=== PATIENT | male | born 1980 | race Caucasian/White ===

== ENCOUNTER → 2021-07-04 11:02 | Outpatient (BNVA) | payer OTHER, SELFPAY | PROVIDERS: Visit Provider Nurse Practitioner Psychiatric/Mental Health | DX: F11.99 Opioid use, unspecified with unspecified opioid-induced disorder (principal); F10.20 Alcohol dependence, uncomplicated; F14.10 Cocaine abuse, uncomplicated; F41.8 Other specified anxiety disorders; G47.9 Sleep disorder, unspecified; R25.2 Cramp and spasm; R45.84 Anhedonia; Z81.1 Family history of alcohol abuse and dependence; Z81.8 Family history of other mental and behavioral disorders; Z63.0 Problems in relationship with spouse or partner | CPT/HCPCS: 80305 ==

== ENCOUNTER → 2021-07-11 16:52 | Outpatient (BNVA) | payer OTHER, SELFPAY | PROVIDERS: Visit Provider Nurse Practitioner Psychiatric/Mental Health | DX: F11.90 Opioid use, unspecified, uncomplicated (principal); F10.20 Alcohol dependence, uncomplicated; F14.10 Cocaine abuse, uncomplicated | CPT/HCPCS: 80305 ==

== ENCOUNTER → 2021-07-25 13:24 | Outpatient (BNVA) | payer OTHER, SELFPAY | PROVIDERS: Visit Provider Nurse Practitioner Psychiatric/Mental Health | DX: Z51.81 Encounter for therapeutic drug level monitoring (principal); F10.20 Alcohol dependence, uncomplicated; F11.90 Opioid use, unspecified, uncomplicated; F14.10 Cocaine abuse, uncomplicated | CPT/HCPCS: 80305 ==

== ENCOUNTER → 2021-08-01 15:55 | Outpatient (BNVA) | payer OTHER, SELFPAY | PROVIDERS: Visit Provider Nurse Practitioner Psychiatric/Mental Health | DX: F11.99 Opioid use, unspecified with unspecified opioid-induced disorder (principal); F10.20 Alcohol dependence, uncomplicated; F14.10 Cocaine abuse, uncomplicated | CPT/HCPCS: 80305 ==

== ENCOUNTER → 2021-08-08 16:25 | Outpatient (BNVA) | payer OTHER, SELFPAY | PROVIDERS: Visit Provider Nurse Practitioner Psychiatric/Mental Health | DX: F11.20 Opioid dependence, uncomplicated (principal); F10.20 Alcohol dependence, uncomplicated; F14.10 Cocaine abuse, uncomplicated; Z51.81 Encounter for therapeutic drug level monitoring; Z79.899 Other long term (current) drug therapy | CPT/HCPCS: 80305 ==

== ENCOUNTER → 2021-08-15 16:14 | Outpatient (BNVA) | payer OTHER, SELFPAY | PROVIDERS: Visit Provider Nurse Practitioner Psychiatric/Mental Health ==

== ENCOUNTER → 2021-08-22 16:13 | Outpatient (BNVA) | payer OTHER, SELFPAY | PROVIDERS: Visit Provider Nurse Practitioner Psychiatric/Mental Health ==

== ENCOUNTER → 2021-08-29 16:19 | Outpatient (BNVA) | payer OTHER, SELFPAY | PROVIDERS: Visit Provider Nurse Practitioner Psychiatric/Mental Health | DX: F11.20 Opioid dependence, uncomplicated (principal); F14.10 Cocaine abuse, uncomplicated; F10.20 Alcohol dependence, uncomplicated; Z51.81 Encounter for therapeutic drug level monitoring; Z79.899 Other long term (current) drug therapy | CPT/HCPCS: 80305 ==

== ENCOUNTER → 2021-09-19 16:23 | Outpatient (BNVA) | payer OTHER, SELFPAY | PROVIDERS: Visit Provider Nurse Practitioner Psychiatric/Mental Health | DX: Z51.81 Encounter for therapeutic drug level monitoring (principal); F14.10 Cocaine abuse, uncomplicated; F11.20 Opioid dependence, uncomplicated | CPT/HCPCS: 80305 ==

== ENCOUNTER → 2021-10-03 16:20 | Outpatient (BNVA) | payer OTHER, SELFPAY | PROVIDERS: Visit Provider Nurse Practitioner Psychiatric/Mental Health | DX: Z51.81 Encounter for therapeutic drug level monitoring (principal); F11.20 Opioid dependence, uncomplicated; F14.10 Cocaine abuse, uncomplicated; F10.20 Alcohol dependence, uncomplicated | CPT/HCPCS: 80305 ==

== ENCOUNTER → 2021-10-24 16:12 | Outpatient (BNVA) | payer OTHER, SELFPAY | PROVIDERS: Visit Provider Nurse Practitioner Psychiatric/Mental Health ==

== ENCOUNTER → 2021-12-05 15:56 | Outpatient (BNVA) | payer OTHER, SELFPAY | PROVIDERS: Visit Provider Nurse Practitioner Psychiatric/Mental Health ==

== ENCOUNTER → 2022-01-02 14:53 | Outpatient (BNVA) | payer OTHER, SELFPAY | PROVIDERS: Visit Provider Nurse Practitioner Psychiatric/Mental Health | DX: F11.20 Opioid dependence, uncomplicated (principal); F10.20 Alcohol dependence, uncomplicated; F14.10 Cocaine abuse, uncomplicated; Z51.81 Encounter for therapeutic drug level monitoring; Z79.899 Other long term (current) drug therapy | CPT/HCPCS: 80305 ==

== ENCOUNTER → 2022-01-30 15:39 | Outpatient (BNVA) | payer OTHER, SELFPAY | PROVIDERS: Visit Provider Nurse Practitioner Psychiatric/Mental Health | DX: Z51.81 Encounter for therapeutic drug level monitoring (principal) ==

== ENCOUNTER → 2022-05-08 16:39 | Outpatient (BNVA) | payer OTHER, SELFPAY | PROVIDERS: Visit Provider Nurse Practitioner Psychiatric/Mental Health | DX: F11.20 Opioid dependence, uncomplicated (principal); F10.20 Alcohol dependence, uncomplicated; F14.10 Cocaine abuse, uncomplicated; Z51.81 Encounter for therapeutic drug level monitoring; Z79.899 Other long term (current) drug therapy | CPT/HCPCS: 80305 ==

== ENCOUNTER → 2022-05-30 15:08 | Outpatient (BNVA) | payer OTHER, SELFPAY | PROVIDERS: Visit Provider Nurse Practitioner Psychiatric/Mental Health | DX: F11.20 Opioid dependence, uncomplicated (principal); F10.20 Alcohol dependence, uncomplicated; F14.10 Cocaine abuse, uncomplicated; Z51.81 Encounter for therapeutic drug level monitoring; Z79.899 Other long term (current) drug therapy | CPT/HCPCS: 80305 ==

== ENCOUNTER → 2022-06-13 10:10 | Outpatient (BNVA) | payer OTHER, SELFPAY | PROVIDERS: Visit Provider Nurse Practitioner Psychiatric/Mental Health | DX: F11.20 Opioid dependence, uncomplicated (principal); F10.20 Alcohol dependence, uncomplicated; F14.10 Cocaine abuse, uncomplicated; Z51.81 Encounter for therapeutic drug level monitoring; Z79.899 Other long term (current) drug therapy | CPT/HCPCS: 80305 ==

== ENCOUNTER → 2022-11-14 16:14 | Outpatient (BNVA) | payer OTHER, SELFPAY | PROVIDERS: Visit Provider Nurse Practitioner Psychiatric/Mental Health | DX: F11.20 Opioid dependence, uncomplicated (principal); F14.20 Cocaine dependence, uncomplicated | CPT/HCPCS: 80305 ==

== ENCOUNTER → 2022-12-05 16:13 | Outpatient (BNVA) | payer OTHER, SELFPAY | PROVIDERS: Visit Provider Nurse Practitioner Psychiatric/Mental Health | DX: Z13.89 Encounter for screening for other disorder (principal) ==

== ENCOUNTER → 2022-12-19 14:59 | Outpatient (BNVA) | payer OTHER, SELFPAY | PROVIDERS: Visit Provider Nurse Practitioner Psychiatric/Mental Health | DX: Z13.89 Encounter for screening for other disorder (principal) ==

== ENCOUNTER → 2023-01-02 13:10 | Outpatient (BNVA) | payer OTHER, SELFPAY | PROVIDERS: Visit Provider Nurse Practitioner Psychiatric/Mental Health | DX: Z13.89 Encounter for screening for other disorder (principal) ==

== ENCOUNTER → 2023-01-30 16:16 | Outpatient (BNVA) | payer OTHER, SELFPAY | PROVIDERS: Visit Provider Nurse Practitioner Psychiatric/Mental Health | DX: Z13.89 Encounter for screening for other disorder (principal) ==

== ENCOUNTER → 2023-03-13 09:45 | Outpatient (BNVA) | payer OTHER, SELFPAY | PROVIDERS: PCP Internal Medicine; Visit Provider Nurse Practitioner Psychiatric/Mental Health | DX: F10.20 Alcohol dependence, uncomplicated (principal); F11.20 Opioid dependence, uncomplicated; F14.10 Cocaine abuse, uncomplicated | CPT/HCPCS: 80305 ==

== ENCOUNTER → 2023-03-30 14:43 | Outpatient (BNVA) | payer OTHER, SELFPAY | PROVIDERS: PCP Internal Medicine; Visit Provider Nurse Practitioner Psychiatric/Mental Health | DX: F11.20 Opioid dependence, uncomplicated (principal); F10.20 Alcohol dependence, uncomplicated; F14.10 Cocaine abuse, uncomplicated; Z51.81 Encounter for therapeutic drug level monitoring | CPT/HCPCS: 80305 ==

== ENCOUNTER 2023-04-28 15:33 | Outpatient (AMB) | payer OTHER, SELFPAY ==
--- NOTE | 2023-04-28 15:34 | A.OFFVIS_ITS ---
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 Reports that he continues to take between 4-8 mg daily, usually taking 8 mg daily. He states he has stopped taking all medications that were ordered, but will resume taking sertraline. He states he has been spending more time at home. Has cut down his cocaine use. Review of Systems Const Reports as per HPI and Reports no additional complaints Physical Exam Vital Signs: Last Vital Signs Pulse 87 04/28/23 15:42 BP 140/92 H 04/28/23 15:42 Pulse Ox 96 04/28/23 15:42 Oxygen Delivery Method Room Air 04/28/23 15:42 Const General: cooperative, no acute distress, alert and anxious Nutritional Appearance: overweight Orientation/consciousness: patient oriented x3 Limitations: no limitations Neuro General: patient oriented x3 Psych Appearance: grossly normal Mental Status: mental status grossly normal Speech and movement: Normal speech and movement present Affect: Anxious affect present Attitude: cooperative Thought process: Normal thought process present Thought content: Depressive thoughts present Insight: Good insight present (Psych) Judgement: Good judgement present (Psych) Results AMB 14 Panel Urine Drug Screen Urine Marijuana (THC) Negative Last Edit by Clemencia Hagen CMA on 04/28/23 15:44 Urine Cocaine Positive Last Edit by Clemencia Hagen CMA on 04/28/23 15:44 Urine Morphine Negative Last Edit by Clemencia Hagen CMA on 04/28/23 15:44 Urine Methamphetamine Negative Last Edit by Clemencia Hagen CMA on 04/28/23 15:44 Urine Amphetamine Negative Last Edit by Clemencia Hagen CMA on 04/28/23 15:4 4 Urine Benzodiazepine Negative Last Edit by Clemencia Hagen CMA on 04/28/23 15:44 Urine Barbiturates Negative Last Edit by Clemencia Hagen CMA on 04/28/23 15: 44 Urine Methadone Negative Last Edit by Clemencia Hagen CMA on 04/28/23 15:44 Urine Buprenorphine Positive Last Edit by Clemencia Hagen CMA on 04/28/23 15 :44 Urine Tricyclic Antidepressant Negative Last Edit by Clemencia Hagen CMA on 04/28/23 15:44 Urine MDMA Negative Last Edit by Clemencia Hagen CMA on 04/28/23 15:44 Urine Oxycodone Negative Last Edit by Clemencia Hagen CMA on 04/28/23 15:44 Urine Phencyclidine Negative Last Edit by Clemencia Hagen CMA on 04/28/23 15 :44 Urine Propoxyphene Negative Last Edit by Clemencia Hagen CMA on 04/28/23 15: 44 Results Reviewed Results Reviewed: Laboratory Last Values POC Urine Buprenorphine Positive 04/28/23 15:35 POC Urine Morphine Negative 04/28/23 15:35 POC Urine Oxycodone Negative 04/28/23 15:35 POC Urine Methadone Negative 04/28/23 15:35 POC Urine Propoxyphene Negative 04/28/23 15:35 POC Urine Barbiturates Negative 04/28/23 15:35 POC U Tricyclic Antidpr Negative 04/28/23 15:35 POC Urine PCP Negative 04/28/23 15:35 POC Ur Amphetamines Negative 04/28/23 15:35 POC Ur Methamphetamine Negative 04/28/23 15:35 POC Urine MDMA Negative 04/28/23 15:35 POC Ur Benzodiazepine Negative 04/28/23 15:35 POC Urine Cocaine Positive 04/28/23 15:35 POC Ur Marijuana (THC) Negative 04/28/23 15:35 Assessment & Plan Assessment & Plan (1) Opioid use disorder: Code(s): F11.99 - Opioid use, unspecified with unspecified opioid-induced disorder Plan: * Continue Suboxone at current dose * Follow-up 4 weeks * Risk reduction discussion Orders: Orders AMB 14 Panel Urine Drug Screen 04/28/23 Z51.81 - Encounter for therapeutic drug level monitoring Medications: Refilled buprenorphine-naloxone 4-1 mg (Suboxone) 1 film sublingual BID 60 ea 0RF Discontinued topiramate Discontinued Reason: Patient no longer taking 25 mg PO DAILY 90 tabs 0RF oxcarbazepine Discontinued Reason: Patient no longer taking 300 mg PO .daily 90 tabs 0RF Coding Level of Care Code Est Pt Level 4 (24932) Diagnoses Opioid use disorder F11.99
[2023-04-28 15:42] VITALS: BP 140/92; PULSE 87; O2SAT 96
== END 2023-04-28 16:04 | disposition home or self-care (01) ==
LOC: HO.HCC 15:33
PROVIDERS: PCP Internal Medicine; Visit Provider Nurse Practitioner Psychiatric/Mental Health
DX: F11.99 Opioid use, unspecified with unspecified opioid-induced disorder (principal)
CPT/HCPCS: 99214

== ENCOUNTER → 2023-04-28 15:33 | Outpatient (BNVA) | payer OTHER, SELFPAY | PROVIDERS: PCP Internal Medicine; Visit Provider Nurse Practitioner Psychiatric/Mental Health | DX: F11.20 Opioid dependence, uncomplicated (principal) | CPT/HCPCS: 80305 ==

== ENCOUNTER 2023-12-04 14:05 | Outpatient (AMB) | payer OTHER, SELFPAY ==
--- NOTE | 2023-12-04 14:08 | MHC.AM.SUB ---
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: No Allergies No Known Allergies Allergy (Verified 12/04/23 14:19) Do you need a note to return to daycare/school/sports/work: No HPI MAT Restart HPI Details Patients presents to re-establish care, last seen April 2023 Reports he has been drinking daily --vodka and mixed drinks 10 drinks per day Starts drinking shortly after waking Would like to taper off of alcohol Does not wish to go inpatient high deductible for ATS admission (5K) Has been buying suboxone taking 4mg daily Discussed tapering alcohol and risks with either reducing too quickly or abruptly stopping Patient verbalized understanding. Patient somewhat guarded. Verbalizing negative impacts of his continued alcohol use--in particular his relationships with his family. [facility] Medical History (Updated 12/08/23 @ 14:47 by Sepideh Farfan CNP) Opioid dependence Review of Systems Const Reports as per HPI Physical Exam Vital Signs: Last Vital Signs Pulse 86 12/04/23 14:10 Pulse Ox 94 12/04/23 14:10 Oxygen Delivery Method Room Air 12/04/23 14:10 BMI result Body Mass Index 43.4 Const General: comfortable Nutritional Appearance: overweight Psych Appearance: well kempt Speech and movement: Clear speech present Affect: Blunted affect present Attitude: cooperative and Guarded attititude/behavior present Thought process: Normal thought process present Thought content: Normal thought content present Insight: Fair insight present (Psych) Judgement: Fair judgement present (Psych) Results AMB 14 Panel Urine Drug Screen Urine Marijuana (THC) Negative Last Edit by Clemencia Hagen CMA on 12/04/23 14:21 Urine Cocaine Positive Last Edit by Clemencia Hagen CMA on 12/04/23 14:21 Urine Morphine Negative Last Edit by Clemencia Hagen CMA on 12/04/23 14:21 Urine Methamphetamine Negative Last Edit by Clemencia Hagen CMA on 12/04/23 14:21 Urine Amphetamine Negative Last Edit by Clemencia Hagen CMA on 12/04/23 14:21 Urine Benzodiazepine Negative Last Edit by Clemencia Hagen CMA on 12/04/23 14:21 Urine Barbiturates Negative Last Edit by Clemencia Hagen CMA on 12/04/23 14:21 Urine Methadone Negative Last Edit by Clemencia Hagen CMA on 12/04/23 14:21 Urine Buprenorphine Positive Last Edit by Clemencia Hagen CMA on 12/04/23 14:21 Urine Tricyclic Antidepressant Negative Last Edit by Clemencia Hagen CMA on 12/04/23 14:21 Urine MDMA Negative Last Edit by Clemencia Hagen CMA on 12/04/23 14:21 Urine Oxycodone Negative Last Edit by Clemencia Hagen CMA on 12/04/23 14:21 Urine Phencyclidine Negative Last Edit by Clemencia Hagen CMA on 12/04/23 14:21 Urine Propoxyphene Negative Last Edit by Clemencia Hagen CMA on 12/04/23 14:21 Results Reviewed Results Reviewed: Laboratory Last Values POC Urine Buprenorphine Positive 12/04/23 14:19 POC Urine Morphine Negative 12/04/23 14:19 POC Urine Oxycodone Negative 12/04/23 14:19 POC Urine Methadone Negative 12/04/23 14:19 POC Urine Propoxyphene Negative 12/04/23 14:19 POC Urine Barbiturates Negative 12/04/23 14:19 POC U Tricyclic Antidpr Negative 12/04/23 14:19 POC Urine PCP Negative 12/04/23 14:19 POC Ur Amphetamines Negative 12/04/23 14:19 POC Ur Methamphetamine Negative 12/04/23 14:19 POC Urine MDMA Negative 12/04/23 14:19 POC Ur Benzodiazepine Negative 12/04/23 14:19 POC Urine Cocaine Positive 12/04/23 14:19 POC Ur Marijuana (THC) Negative 12/04/23 14:19 Assessment & Plan Assessment & Plan (1) Opioid use disorder: Code(s): F11.99 - Opioid use, unspecified with unspecified opioid-induced disorder Plan: suboxone 4mg QD ordered patient familiar with this medication as he has been taking it with regularity (2) Alcohol use disorder, severe, dependence: Code(s): F10.20 - Alcohol dependence, uncomplicated Plan: patient plans to taper use risk reduction discussion follow up one week per patient request Orders: Orders AMB 14 Panel Urine Drug Screen 12/04/23 Z51.81 - Encounter for therapeutic drug level monitoring Medications: Changed From buprenorphine-naloxone 4-1 mg (Suboxone) 1 film sublingual BID 60 ea 0RF To buprenorphine-naloxone 4-1 mg (Suboxone) 1 film sublingual DAILY 15 ea 0RF Discontinued sertraline Discontinued Reason: Patient no longer taking 100 mg PO DAILY 30 tabs 3RF Coding Level of Care Code Est Pt Level 4 (91282) Diagnoses Opioid use disorder F11.99 Alcohol use disorder, severe, dependence F10.20
[2023-12-04 14:10] VITALS: PULSE 86; O2SAT 94; BMI 43.4
== END 2023-12-04 15:10 | disposition home or self-care (01) ==
PROVIDERS: PCP Internal Medicine; Visit Provider Nurse Practitioner Psychiatric/Mental Health
DX: F11.99 Opioid use, unspecified with unspecified opioid-induced disorder (principal); F10.20 Alcohol dependence, uncomplicated
CPT/HCPCS: 99214

== ENCOUNTER → 2023-12-04 14:05 | Outpatient (BNVA) | payer OTHER, SELFPAY | PROVIDERS: PCP Internal Medicine; Visit Provider Nurse Practitioner Psychiatric/Mental Health | DX: F11.20 Opioid dependence, uncomplicated (principal); F10.20 Alcohol dependence, uncomplicated | CPT/HCPCS: 80305 ==

== ENCOUNTER 2023-12-11 10:04 | Outpatient (AMB) | payer OTHER, SELFPAY ==
--- NOTE | 2023-12-11 10:05 | A.OFFVISCC_ITS ---
Intake Vital Signs 12/11/23 10:08 BP 150/70 H Blood Pressure Location Rt radial Position Sitting Respiration 22 H Pulse 93 Pulse Source Pulse Oximeter Pulse Oximetry (%) 96 Oxygen Delivery Method Room Air Intake Visit Reasons: MAT Allergies No Known Allergies Allergy (Verified 12/04/23 14:19) HPI MAT HPI Details Patient presents for follow up has cut down his drinking significantly about 50% plans to transition from vodka to spiked seltzers Denies any withdrawal sx since start of taper Has a new job --excited about this. Would like to restart antidepressants, agreeable to restarting trial once ETOH taper complete. [facility] Medical History (Updated 12/08/23 @ 14:47 by Sepideh Farfan CNP) Opioid dependence Review of Systems Const Reports as per HPI and Reports no additional complaints Physical Exam Vital Signs: Last Vital Signs Pulse 93 12/11/23 10:08 Resp 22 H 12/11/23 10:08 BP 150/70 H 12/11/23 10:08 Pulse Ox 96 12/11/23 10:08 Oxygen Delivery Method Room Air 12/11/23 10:08 Const General: cooperative, no acute distress, alert and awake Limitations: no limitations Psych Appearance: well kempt Speech and movement: Clear speech present Affect: normal affect Attitude: cooperative Thought process: Normal thought process present Thought content: Normal thought content present Insight: Fair insight present (Psych) Judgement: Fair judgement present (Psych) Assessment & Plan Assessment & Plan (1) Alcohol use disorder, severe, dependence: Code(s): F10.20 - Alcohol dependence, uncomplicated Plan: * patient plans to continue tapering alcohol * risk reduction discussion * follow up one week (2) Opioid use disorder: Code(s): F11.99 - Opioid use, unspecified with unspecified opioid-induced disorder Plan: * continue suboxone at current dose Medications: Refilled buprenorphine-naloxone 4-1 mg (Suboxone) 1 film sublingual DAILY 28 ea 0RF Coding Level of Care Code Est Pt Level 4 (15053) Diagnoses Alcohol use disorder, severe, dependence F10.20 Opioid use disorder F11.99
[2023-12-11 10:08] VITALS: BP 150/70; PULSE 93; RESP 22; O2SAT 96
== END 2023-12-11 10:32 | disposition home or self-care (01) ==
PROVIDERS: PCP Internal Medicine; Visit Provider Nurse Practitioner Psychiatric/Mental Health
DX: F10.20 Alcohol dependence, uncomplicated (principal); F11.99 Opioid use, unspecified with unspecified opioid-induced disorder
CPT/HCPCS: 99214

== ENCOUNTER → 2023-12-11 10:04 | Outpatient (BNVA) | payer OTHER, SELFPAY | PROVIDERS: PCP Internal Medicine; Visit Provider Nurse Practitioner Psychiatric/Mental Health | DX: Z51.81 Encounter for therapeutic drug level monitoring (principal) ==

== ENCOUNTER 2024-01-15 15:18 | Outpatient (AMB) | payer OTHER, SELFPAY ==
[2024-01-15 15:29] VITALS: BP 160/90; PULSE 80; RESP 20; O2SAT 96
--- NOTE | 2024-01-15 15:29 | A.OFFVISCC_ITS ---
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 --feels he needs more support [facility] Medical History (Updated 01/17/24 @ 19:00 by Sepideh Farfan CNP) Opioid dependence Review of Systems Const Reports as per HPI Physical Exam Vital Signs: Last Vital Signs Pulse 80 01/15/24 15:29 Resp 20 01/15/24 15:29 BP 160/90 H 01/15/24 15:29 Pulse Ox 96 01/15/24 15:29 Oxygen Delivery Method Room Air 01/15/24 15:29 Const General: cooperative, healthy appearing and no acute distress Nutritional Appearance: overweight Orientation/consciousness: patient oriented x3 Limitations: no limitations Neuro General: patient oriented x3 Assessment & Plan Assessment & Plan (1) Alcohol use disorder, severe, dependence: Code(s): F10.20 - Alcohol dependence, uncomplicated Plan: * patient plans to continue tapering alcohol * risk reduction discussion * follow up 2 weeks week (2) Opioid use disorder: Code(s): F11.99 - Opioid use, unspecified with unspecified opioid-induced disorder Plan: * continue suboxone at current dose (3) Cocaine use disorder: Code(s): F14.10 - Cocaine abuse, uncomplicated Plan: * risk reduction discussion * leg cramps in evening since not using--tizanidine ordered Medications: New tizanidine 4 mg PO BEDTIME PRN 14 caps 0RF muscle spasticity Refilled buprenorphine-naloxone 4-1 mg (Suboxone) 1 film sublingual DAILY 28 ea 0RF Coding Level of Care Code Est Pt Level 4 (37050) Diagnoses Alcohol use disorder, severe, dependence F10.20 Opioid use disorder F11.99 Cocaine use disorder F14.10
== END 2024-01-15 15:54 | disposition home or self-care (01) ==
LOC: HO.HCC 15:18
PROVIDERS: PCP Internal Medicine; Visit Provider Nurse Practitioner Psychiatric/Mental Health
DX: F10.20 Alcohol dependence, uncomplicated (principal); F11.99 Opioid use, unspecified with unspecified opioid-induced disorder; F14.10 Cocaine abuse, uncomplicated
CPT/HCPCS: 99214

== ENCOUNTER → 2024-01-15 15:18 | Outpatient (BNVA) | payer OTHER, SELFPAY | PROVIDERS: PCP Internal Medicine; Visit Provider Nurse Practitioner Psychiatric/Mental Health ==

== ENCOUNTER → 2024-02-12 16:20 | Outpatient (BNVA) | payer OTHER, SELFPAY | PROVIDERS: PCP Internal Medicine; Visit Provider Nurse Practitioner Psychiatric/Mental Health ==

== ENCOUNTER 2024-02-26 14:19 | Outpatient (AMB) | payer OTHER, SELFPAY ==
[2024-02-26 14:30] VITALS: BP 140/80; RESP 20
--- NOTE | 2024-02-26 14:30 | A.OFFVISCC_ITS ---
Vital Signs 02/26/24 14:30 BP 140/80 H Blood Pressure Location Rt brachial Position Sitting Respiration 20 Intake Visit Reasons: mat visit Allergies No Known Allergies Allergy (Verified 12/04/23 14:19) HPI HPI mat visit: Details: Patient presents for follow up new job with the [place] of [place] on March 07 excited to start no cocaine for 2 weeks has been drinking 6-8 drinks daily verbalizing desire to cut down and eventually stop--requesting information on mutual help groups downloaded meeting finder janice and showed patient how to use it [facility] Medical History (Updated 01/17/24 @ 19:00 by Sepideh Farfan CNP) Opioid dependence Review of Systems Const Reports as per HPI, Reports difficulty sleeping and Reports weight gain Physical Exam Vital Signs: Last Vital Signs Resp 20 02/26/24 14:30 BP 140/80 H 02/26/24 14:30 Const General: cooperative, healthy appearing and no acute distress Nutritional Appearance: overweight Orientation/consciousness: patient oriented x3 Limitations: no limitations Neuro General: patient oriented x3 Assessment & Plan Assessment & Plan (1) Alcohol use disorder, severe, dependence: Code(s): F10.20 - Alcohol dependence, uncomplicated Category: Medical Plan: * discussed decreasing amounts of alcohol safely * self help groups * risk reduction discussion (2) Cocaine use disorder: Code(s): F14.10 - Cocaine abuse, uncomplicated Category: Medical Plan: * relapse prevention discussion * follow up 2 weeks Medications: Refilled buprenorphine-naloxone 4-1 mg (Suboxone) 1 film sublingual DAILY 30 ea 0RF
== END 2024-02-26 14:46 | disposition home or self-care (01) ==
PROVIDERS: PCP Internal Medicine; Visit Provider Nurse Practitioner Psychiatric/Mental Health
DX: F10.20 Alcohol dependence, uncomplicated (principal); F14.10 Cocaine abuse, uncomplicated
CPT/HCPCS: 99214

== ENCOUNTER → 2024-02-26 14:19 | Outpatient (BNVA) | payer OTHER, SELFPAY | PROVIDERS: PCP Internal Medicine; Visit Provider Nurse Practitioner Psychiatric/Mental Health ==

== ENCOUNTER 2024-09-07 13:27 | Outpatient (AMB) | payer OTHER, SELFPAY ==
--- NOTE | 2024-09-07 13:29 | A.OFFVISCC_ITS ---
Intake Visit Reasons: MAT Restart Allergies No Known Allergies Allergy (Verified 12/04/23 14:19) HPI HPI MAT Restart: Details: Patient presents to re-establish care for AUD and OUD Reports that he was incarcerated for 60 days Prior to incarceration he was drinking 1/2 gallon vodka daily and using cocaine States he stopped all medications while incarcerated, including suboxone --although he does report IN use of subutex while incarcerated when he could not sleep Last use one month ago 45 days of no suboxone Released on Thursday --used cocaine due to decreased energy Patient reports that he would like to have vivitrol injection. He identifies his alcohol use as most negatively impacting his life. He is aware that he must be opiate free to begin this. 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 Review of Systems Const Reports as per HPI Psych Reports anxiety, Reports difficulty concentrating, Reports irritability and Reports anhedonia Physical Exam Const General: cooperative and comfortable Nutritional Appearance: overweight Orientation/consciousness: patient oriented x3 Limitations: no limitations Neuro General: patient oriented x3 Psych Appearance: grossly normal Speech and movement: Clear speech present and Pressured speech present Affect: normal affect and Anxious affect present Attitude: cooperative Thought process: Circumstantial thought process present Thought content: Normal thought content present Insight: Fair insight present (Psych) Judgement: Good judgement present (Psych) Assessment & Plan Assessment & Plan (1) Alcohol use disorder, severe, dependence: Code(s): F10.20 - Alcohol dependence, uncomplicated Category: Medical Plan: * naltrexone --reviewed medication education * relapse prevention discussion * labs ordered * follow up one week Orders: Orders Complete Blood Count Auto Diff 09/07/24 F10. - Alcohol dependence, uncomplicated Comprehensive Met. Panel 09/07/24 F10.20 - Alcohol dependence, uncomplicated HIV Ab/Ag 09/07/24 F1.20 - Alcohol dependence, uncomplicated Hepatitis A,B,C Profile 09/07/240.20 - Alcohol dependence, uncomplicated Hepatitis C Antibody Reflex 09/07/24 F10. - Alcohol dependence, uncomplicated Medications: New naltrexone take 1/2 tab daily for 3 days then increase to one tab daily 50 mg PO DAILY 30 tabs 0RF gabapentin 100 mg PO BID 20 caps 0RF tizanidine 6 mg PO TID PRN 90 caps 0RF muscle spasticity naltrexone microspheres ER (Vivitrol) 380 mg IM Q4W 1 ea 5RF Discontinued tizanidine Discontinued Reason: Doctor's Order 4 mg PO BEDTIME PRN 14 caps 0RF muscle spasticity buprenorphine-naloxone 4-1 mg Discontinued Reason: Patient no longer taking 1 film sublingual DAILY 30 ea 0RF PFSH Medical History (Updated 01/17/24 @ 19:00 by Sepideh Farfan CNP) Opioid dependence
== END 2024-09-07 13:54 | disposition home or self-care (01) ==
PROVIDERS: PCP Internal Medicine; Visit Provider Nurse Practitioner Psychiatric/Mental Health
DX: F10.20 Alcohol dependence, uncomplicated (principal)
CPT/HCPCS: 99214

== ENCOUNTER → 2024-09-07 13:27 | Outpatient (BNVA) | payer OTHER, SELFPAY | PROVIDERS: PCP Internal Medicine; Visit Provider Nurse Practitioner Psychiatric/Mental Health ==

== ENCOUNTER 2024-11-09 14:35 | Outpatient (AMB) | payer OTHER, SELFPAY ==
--- NOTE | 2024-11-09 14:52 | MHC.AM.SUB ---
Vital Signs 11/09/24 15:10 BP 135/90 H Blood Pressure Location Rt brachial Position Sitting Respiration 19 Pulse 89 Pulse Oximetry (%) 99 Oxygen Delivery Method Room Air Intake Visit Reasons: MAT Allergies No Known Allergies Allergy (Verified 12/04/23 14:19) HPI HPI MAT: Details: Patient presents for EARNE[facility]INE treatment follow up Reports his petitioned for a Section 35 -- 45 days at [facility] out on thursday --no alcohol since then started wellbutrin 300mg daily suboxone 8mg daily Wants to build up recovery network interested in IOP Review of Systems Const Reports difficulty sleeping Psych Reports anxiety, Reports difficulty concentrating and Reports anhedonia Physical Exam Vital Signs: Last Vital Signs Pulse 89 11/09/24 15:10 Resp 19 11/09/24 15:10 BP 135/90 H 11/09/24 15:10 Pulse Ox 99 11/09/24 15:10 Oxygen Delivery Method Room Air 11/09/24 15:10 Const General: cooperative and comfortable Nutritional Appearance: overweight Orientation/consciousness: patient oriented x3 Limitations: no limitations Neuro General: patient oriented x3 Psych Appearance: grossly normal Speech and movement: Clear speech present and Pressured speech present Affect: normal affect and Anxious affect present Attitude: cooperative Thought process: Circumstantial thought process present Thought content: Normal thought content present Insight: Fair insight present (Psych) Judgement: Good judgement present (Psych) [facility] Medical History (Updated 01/17/24 @ 19:00 by Sepideh Farfan CNP) Opioid dependence Assessment & Plan Assessment & Plan (1) Opioid use disorder: Code(s): F11.99 - Opioid use, unspecified with unspecified opioid-induced disorder Category: Medical Plan: continue suboxone (2) Alcohol use disorder, severe, dependence: Code(s): F10.20 - Alcohol dependence, uncomplicated Category: Medical Plan: relapse prevention discussion provided information for IOP (3) Cocaine use disorder: Code(s): F14.10 - Cocaine abuse, uncomplicated Category: Medical Plan: relapse prevention discussion provided information on IOP Medications: New buprenorphine-naloxone 8-2 mg (Suboxone) 1 film buccal DAILY 30 ea 0RF Discontinued naltrexone take 1/2 tab daily for 3 days then increase to one tab daily Discontinued Reason: Stopped on Transfer 50 mg PO DAILY 30 tabs 0RF tizanidine Discontinued Reason: Patient no longer taking 6 mg PO TID PRN 90 caps 0RF muscle spasticity naltrexone microspheres ER Discontinued Reason: Patient no longer taking 380 mg IM Q4W 1 ea 5RF
[2024-11-09 15:10] VITALS: BP 135/90; PULSE 89; RESP 19; O2SAT 99
--- OUTSIDE RECORDS SUMMARY | 2024-11-09 17:01 | XMS_ITS | Data Portability ---
Author Organization [facility] [id number] Address [address] [place] [address] Assessment No assessment recorded. Plan of Treatment Reminders Order Date Submit Date Provider Last Modified By Organization Details Last Modified Time Details Appointments None record ed. Lab None record ed. Referral None record ed. Procedures None record ed. Surgeries None record ed. Imaging None record ed. Medication Orders None record ed. Patient TargetsNo targets recorded. Patient InstructionsNo instructions recorded. Reason for Referral None Reported. Procedures Surgical History Date Name Laterality Status Provider Name and Address Organization Details Recorded Time OC-UDS Send Out Template NON DOT completed [facility] 12/15/2022 13:35:15 Imaging Results None recorded. Procedure Notes None recorded. Medical Equipment None Reported. Medications Name Sig Start Date Stop Date Status Note LastModified by Organization Details LastModified Time sertraline 100 mg tablet TAKE 1 TABLET BY MOUTH DAILY active Not Available Not Available No t Available topiramate 25 mg tablet TAKE 2 TABLETS BY MOUTH DAILY active Not Available Not Available No t Available gabapentin 300 mg capsule active Not Available Not Available N ot Available fluoxetine 20 mg capsule TAKE 2 CAPSULES BY MOUTH DAILY active Not Available Not Available No t Available sertraline 50 mg tablet TAKE 1 TABLET BY MOUTH DAILY active Not Available Not Available No t Available buprenorphine 4 mg-naloxone [address] FILM UNDER THE TONGUE TWICE DAILY FOR 14 DAYS active Not Available Not Available No t Available Vitals None Recorded Social History None recorded. Functional Status None recorded. Mental Status None recorded. Family History Nothing Reported. Medical History No medical history recorded. 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 [id number] [place] [address] 12/15/2022 12:45:56 12/15/2022 13:44:45 History and physical examination, occupation [id number] Z02.1 Health Concerns Section Related Observation LastModified by Organization Detai ls LastModified Time None Recorded Concern Status LastModified by Organization Details LastModified Time None Recorded Advance Directives Directive None Recorded Payers Encounter Date Sequence Insurance Name Policy Number Policy Shankar Covered Member ID Shankar Member ID Guarantor Name 12/15/2022 OC-ESCREEN Alex Calvert [employer] Alex Calvert
== END 2024-11-09 15:12 | disposition home or self-care (01) ==
PROVIDERS: PCP Internal Medicine; Visit Provider Nurse Practitioner Psychiatric/Mental Health
DX: F11.99 Opioid use, unspecified with unspecified opioid-induced disorder (principal); F10.20 Alcohol dependence, uncomplicated; F14.10 Cocaine abuse, uncomplicated
CPT/HCPCS: 99214

== ENCOUNTER → 2024-11-09 14:35 | Outpatient (BNVA) | payer OTHER, SELFPAY | PROVIDERS: PCP Internal Medicine; Visit Provider Nurse Practitioner Psychiatric/Mental Health ==

== ENCOUNTER 2025-08-15 14:03 | Outpatient (AMB) | payer OTHER, SELFPAY ==
--- NOTE | 2025-08-15 14:18 | MHC.OFFVIS ---
Vital Signs 08/15/25 14:19 Height 6 ft Weight 310 lb BMI 42.0 BP 136/78 Pulse 74 Pulse Oximetry (%) 96 Intake Visit Reasons: MAT Allergies No Known Allergies Allergy (Verified 08/15/25 14:19) HPI Comments Details: A 44-year-old male presents for a follow-up visit r/t EARNESTINE. Reports for the past several months he has been buying buprenorphine-naloxone on the streets due to an issue with insurance. The patient is scheduled to enter a detox program on Thursday for alcohol use disorder and uses cocaine on a daily basis. Acknowledges family as a motivation to enter a detox program. [facility] Medical History Opioid dependence Review of Systems Const All systems reviewed & are unremarkable except as noted in HPI and below Physical Exam Vital Signs: Last Vital Signs Pulse 74 08/15/25 14:19 BP 136/78 08/15/25 14:19 Pulse Ox 96 08/15/25 14:19 BMI result Body Mass Index 42.0 Const General: cooperative Results AMB 14 Panel Urine Drug Screen Urine Marijuana (THC) Negative Last Edit by Aminata Woodruff CMA on 08/15/25 14:22 Urine Cocaine Positive Last Edit by Aminata Woodruff CMA on 08/15/25 14:22 Urine Morphine Negative Last Edit by Aminata Woodruff CMA on 08/15/25 14:22 Urine Methamphetamine Negative Last Edit by Aminata Woodruff CMA on 08/15/25 14:22 Urine Amphetamine Negative Last Edit by Aminata Woodruff CMA on 08/15/25 14:22 Urine Benzodiazepine Negative Last Edit by Aminata Woodruff CMA on 08/15/25 14:22 Urine Barbiturates Negative Last Edit by Aminata Woodruff CMA on 08/15/25 14:22 Urine Methadone Negative Last Edit by Aminata Woodruff CMA on 08/15/25 14:22 Urine Buprenorphine Positive Last Edit by Aminata Woodruff CMA on 08/15/25 14:22 Urine Tricyclic Antidepressant Negative Last Edit by Aminata Woodruff CMA on 08/15/25 14:22 Urine MDMA Negative Last Edit by Aminata Woodruff CMA on 08/15/25 14:22 Urine Oxycodone Negative Last Edit by Aminata Woodruff CMA on 08/15/25 14:22 Urine Phencyclidine Negative Last Edit by Aminata Woodruff CMA on 08/15/25 14:22 Urine Propoxyphene Negative Last Edit by Aminata Woodruff CMA on 08/15/25 14:22 Results Reviewed Results Reviewed: Laboratory Last Values POC Urine Buprenorphine Positive 08/15/25 14:20 POC Urine Morphine Negative 08/15/25 14:20 POC Urine Oxycodone Negative 08/15/25 14:20 POC Urine Methadone Negative 08/15/25 14:20 POC Urine Propoxyphene Negative 08/15/25 14:20 POC Urine Barbiturates Negative 08/15/25 14:20 POC U Tricyclic Antidpr Negative 08/15/25 14:20 POC Urine PCP Negative 08/15/25 14:20 POC Ur Amphetamines Negative 08/15/25 14:20 POC Ur Methamphetamine Negative 08/15/25 14:20 POC Urine MDMA Negative 08/15/25 14:20 POC Ur Benzodiazepine Negative 08/15/25 14:20 POC Urine Cocaine Positive 08/15/25 14:20 POC Ur Marijuana (THC) Negative 08/15/25 14:20 Assessment & Plan Assessment & Plan (1) Opioid use disorder: Code(s): F11.99 - Opioid use, unspecified with unspecified opioid-induced disorder Category: Medical Plan The plan of care is to continue with buprenorphine-naloxone 8-2 mg BID. Follow-up with scheduled plan for detox program on Thursday and engage in risk reduction activities to minimize consumption of alcohol and cocaine use. Follow-up in 2 weeks or sooner if needed. Orders: Orders AMB 14 Panel Urine Drug Screen Today Z51.81 - Encounter for therapeutic drug level monitoring Medications: Changed From buprenorphine-naloxone 8-2 mg (Suboxone) 1 film buccal DAILY 30 ea 0RF To buprenorphine-naloxone 8-2 mg (Suboxone) Take 1 film sublingually twice per day 1 film sublingual BID 28 ea 0RF 14 days Patient Instructions: - Continue with buprenorphine-naloxone as prescribed. - Engage in risk reduction activities to minimize consumption of alcohol and cocaine use. - Follow-up with scheduled plan for detox program on Thursday. - Follow-up in 2 weeks or sooner if needed. - Call with questions, concerns, or to report side effects/new onset of symptoms to [facility]. - The patient verbalized understanding and agreed with plan of care. Coding Level of Care Code Est Pt Level 3 (43473) Diagnoses Opioid use disorder F11.99
[2025-08-15 14:19] VITALS: BP 136/78; PULSE 74; O2SAT 96; BMI 42.0
--- OUTSIDE RECORDS SUMMARY | 2025-08-15 18:29 | XMS_ITS | Data Portability ---
Author Organization [facility] [employer] [facility] , [address] Address [address] [place] [address] Assessment No assessment recorded. Plan of Treatment [...] Send Out Template NON DOT completed GUERLINE VANESSA HOLLAND [facility] 12/15/2022 13:35:15 Imaging Results None recorded. [...] Diagnosis SNOMED-CT Code Diagnosis ICD10 Code Diagnosis IMO Codes Diagnosis Note [id number] [facility] [place] [address] 02/15/2018 13:46:26 02/15/2018 14:46:29 [id number] [address] [place] [address] 02/05/2022 16:20:59 02/05/2022 18:04:26 [id number] Norm Montalvo, IMPORT CUSTOMER SERVICE MANAGER [address] [place] [address] 12/15/2022 12:45:56 12/15/2022 13:44:45 History and physical examination, occupation [id number] Z02.1 Health Concerns Section Related Observation LastModified by Organization Detai ls LastModified Time None Recorded Concern Status LastModified by Organization Details LastModified Time None Recorded Advance Directives Directive None Recorded Payers Insurance Date Sequence Insurance Name Policy Number Policy Shankar Covered Member ID Shankar Member ID Guarantor Name 09/17/2022 [employer] KAUSHAL RANKIN Oc-Kaushal Calvert 12/15/2022 OC-LUCIA Calvert ASPLUNDH [employer] ASPLUNDH [employer]OL Alex Calvert
--- OUTSIDE RECORDS SUMMARY | 2025-08-15 18:29 | XMS_ITS | Encounter Summary ---
Author Organization [facility] Address [id number] [place] [address] Care Team Providers Care Banana Expert Name Role Phone Leeann Atkins MD Primary Care Provider [phone] Reason for Referral * Consultation (Urgent) - Closed Specialty Diagnoses / Procedures Referred By Contac t Referred To Contact Orthopaedics Diagnoses Lumbar radiculopathy German Sherman PA [address] [place] [address] Phone: tel: fax: [facility] [address] [place] [address] Phone: tel: fax: Referral ID Status Reason Start Date Expiration Date V isits Requested Visits Authorized [id number] Closed Specialty Services Required 08/09/2025 08/09/2026 1 1 Scheduling Instructions [facility] Reason for Visit * Reason Onset Date Comments Referral Issue 08/09/2025 Encounter Details Date Type Department Care Team (Late st Contact Info) Description 08/09/2025 Telephone Walk-In Clinic [facility] [address] [place] [id number] German Sherman PA [address] [place], [place] Social History Tobacco Use Types Packs/Day Years Used Date Smoking Tobacco: Former Smokeless Tobacco: Current Alcohol Use Standard Drinks/Week Comments Yes 0 (1 standard drink = 0.6 oz pur e alcohol) Sex and Gender Information Value Date Recorded Sex Assigned at Not on file Legal Sex Male 12:36 PM EST Gender Identity Not on file Sexual Orientation Not on file documented as of this encounter Progress Notes * Janiya Ahuja MA - 08/09/2025 1:51 PM EDT Called patient and left message on answering machine to call [facility]. * SKYLER Plunkett - 08/09/2025 1:12 PM EDT Since [facility] is not doing Lumbar Radiculopathy assessment for patient, referral changed to [facility]. * Kellie Marquez RN - 08/09/2025 1:03 PM EDT Please see message and advise * Marta Fortune - 08/09/2025 12:36 PM EDT Pt called about an MRI that had been reordered to [facility] for an MRI of his back stating that he was told by the staff that they don't do images of backs. Pt was wondering if this could be cleared up with them or have a referral sent elsewhere. Pt can be reached at [phone] documented in this encounter Plan of Treatment Scheduled Referrals Name Type Priority Associated Diagnoses Orde r Schedule Ambulatory referral to Orthopedic Outpatient Referral Routine Lumbar radiculopathy 1 Occurrences starting 08/09/2025 until 08/09/2026 documented as of this encounter Visit Diagnoses Diagnosis Lumbar radiculopathy- Primary Thoracic or lumbosacral neuritis or radiculitis, unspecified documented in this encounter Care Teams Banana Expert Relationship Specialty Start Date End Date Leeann Atkins MD [address] [place] [address] PCP - General Internal Medicine 02/04/17 documented as of this encounter
--- OUTSIDE RECORDS SUMMARY | 2025-08-15 18:29 | XMS_ITS ---
Author Name [facility] Organization Unknown Care Team Organization Name Specialty Phone Email Start Date End Da te [facility] Primary [facility] 08/26/2022 06/06/2024
--- OUTSIDE RECORDS SUMMARY | 2025-08-15 18:29 | XMS_ITS | Clinical Summary ---
Author Organization [facility] Address [address] [place] [address] Phone Care Team Providers Care Electronic Science Teacher Name Role Phone Vaughn Quintanilla MD Unavailable [phone] Sepideh Farfan NP Primary Care Provider [phone] Allergies Active Allergy Reactions Criticality Noted Date Comments Anti-Thymocyte Glob (Rabbit) 025 Medications cloNIDine HCL (CATAPRES) 0.1 MG tablet Take 1 tablet by mouth 2 (two) times a day. 12/11/2024 Active Active Problems No known active problems Social History Tobacco Use Types Packs/Day Years Used Date Smoking Tobacco: Never Assessed Education Answer Date Recorded Are you interested in more education? Not on jade e 01/10/2025 Are you concerned about learning? Not on file 01/10/2025 No 01/10/2025 No 01/10/2025 Digital Access Answer Date Recorded No 01/10/2025 No 01/10/2025 Reliable internet access at home? Not on file 01/10/2025 Device with a working camera? Not on file Sex and Gender Information Value Date Recorded Sex Assigned at Not on file Legal Sex Male 10:29 PM EDT Gender Identity Not on file Sexual Orientation Not on file Last Filed Vital Signs Vital Sign Reading Time Taken Comments Blood Pressure 126/84 01/19/2025 8:36 AM EDT Pulse 90 01/19/2025 8:36 AM EDT Temperature - - Respiratory Rate - - Oxygen Saturation 99% 01/19/2025 8:36 AM EDT Inhaled Oxygen Concentration - - Weight 142.9 kg (315 lb) 01/19/2025 8:36 AM EDT Height 182.9 cm (6') 01/19/2025 8:36 AM EDT Body Mass Index 42.72 01/19/2025 8:36 AM EDT Plan of Treatment Health Maintenance Due Date Last Done Comments Adult Td,Tdap Booster 1979 LIPID PANEL 1979 DEPRESSION SCREENING 1991 SMOKING Hx and SMOKELESS TOBACCO SCREENING 1992 HEPATITIS C SCREENING 1997 HIV ONE-TIME SCREENING (18-6 5 YEARS) 1997 SCREENING FOR DIABETES 2014 COLOGUARD 2024 COLONOSCOPY 2024 COLORECTAL CANCER SCREENING 2024 FIT TEST 2024 FOBT 2024 SIGMOIDOSCOPY 2024 VIRTUAL COLONOSCOPY 2024 INFLUENZA VACCINE (#1) 2025 07/08/2019 COVID-19 VACCINE (2024-2 6 season) 2025 08/28/2021, 02/04/2021, 01/07/2021 HEPATITIS A VACCINES Aged Out No long er eligible based on patient's age to complete this topic HIB VACCINES Aged Out No longer eligi ble based on patient's age to complete this topic MENINGOCOCCAL VACCINES (ACWY) Aged Out No longer eligible based on patient's age to complete this topic MENINGOCOCCAL VACCINES (B) Aged Out N o longer eligible based on patient's age to complete this topic PNEUMOCOCCAL VACCINES (0-49 years) Aged Out No longer eligible b ased on patient's age to complete this topic Medical Devices Not on file Insurance [facility] H[facility] HMO [facility] Address: [address] [address] Care Teams Electronic Science Teacher Relationship Specialty Start Date End Date Sepideh Farfan NP [address] [place] [address] PCP - General Nurse Practitioner 01/19/25 Vaughn Quintanilla MD [address] [place] [phone] Historical LMR Provider 08/05/17 Additional Source Comments The information contained in this document represents components of the legal health record. It is not the complete legal health record.[facility]
--- OUTSIDE RECORDS SUMMARY | 2025-08-15 18:29 | XMS_ITS | Patient Health Record ---
Author Organization [facility] [place] Address [address] [place] [address] Care Team Providers Care Principal System Software Engineer Name Role Phone David Manuel MD Primary Care Provider JignaDiamond Lopez Unavailable [phone] Allergies Allergen (clinical drug ingredient) Drug/Non Drug Allergy documented on EMR Reaction Allergy Type Onset Date Status rabbits (uncoded) Unknown Allergy Ac tive Reason For Referral No Information Medications Medication SIG (Take, Route, Fr equency, Duration) Notes Start Date End Date Status Custom Orthotics as directed 11/01/2018 Active Custom Orthotics as directed 12/18/2014 Active Social History Tobacco Use: Social History Observation Description Date Details (start date - stop date) Never Smoker NA - NA Tobacco Use/Smoking Question Answer Notes Are you a: nonsmoker Additional Findings: Tobacco Non-User Current no n-smoker Alcohol Screen Question Answer Notes Did you have a drink containing alcohol in the p ast year? No Points 0 Interpretation Negative Tobacco use other than smoking: Question Answer Notes Are you an other tobacco user? Yes c hews tobacco Problems Problem Type SNOMED Code ICD Code Onset Dates Problem Status W/U Status Risk Notes Problem Cavus deformity (5019676) Cavus deformity (Q66.7) Active confirmed Problem Cavus deformity (9554788) Cavus deformity (Q66.7) Active confirmed Plan Of Treatment No Information Insurance Providers Payer Name Payer Address Payer Phone Subscriber Number Group Number Insured Name Patient Relationship to Insured Coverage Start Date Coverage End Date [facility] Card [address] [place] [address] [id number] Alex Calvert Self - patient is the insured Medical (General) History Medical History History ICD Code Back,Hip,and Knee pain Joint implants/screws- tooth Surgical History Surgery Date(Month/Year)
--- OUTSIDE RECORDS SUMMARY | 2025-08-15 18:30 | XMS_ITS | Clinical Summary ---
[facility] [address] [facility] [address] Address [address] [place] [id number] Phone Care Team Providers Care Diesel Truck Crane Operator Name Role Phone Leeann Atkins MD Primary Care Provider [phone] Allergies Active Allergy Reactions Criticality Noted Date Comments Daily Vitamins 07/08/2019 Animal Chewable Multi-extra [Daily Vitamins], Allergic to rabbits Medications methocarbamoL (ROBAXIN) 500 mg tablet Take 1 tablet (500 mg total) by mouth every 6 (six) hours if needed for muscle spasms for up to 10 days. Caution: Sedating. Do not drive or operate machinery on this medication. 40 tablet 5 Active Active Problems Problem Noted Date Diagnosed Date Obstructive sleep apnea 12/06/2019 Overview (2024): [facility] Home Sleep Apnea Test: Date 12/04/2019; Wt 285#; BMI 39; ROMEL 30, AI 1; HI 29; Unclassified apneas 0; Obstructive apneas 0; Central apneas 2; Mixed apneas 0; hypopneas 85; average oxygen saturation 92% (lowest 80% with saturations <88% for 5% or more of study) - Obstructive Sleep Apnea - severe; mostly hypopnea; with sleep related hypoventilation by 2019 home sleep apnea test. Borderline blood pressure 08/12/2019 Depression 08/12/2019 Insomnia 08/12/2019 Low back pain 08/12/2019 Osteoarthritis 08/12/2019 Overview (2024): Lumbosacral Spine Substance abuse (CMS/[facility] V24, CMS/HCC V28) 08/12 Overview (2024): Opioids, Cocaine, Alcohol Anxiety 07/08/2019 Overview (2024): Per pt's report, related to ETOH, which he stopped. Severe obesity (BMI 35.0-39. 9) with comorbidity ([facility] V24, [facility] V28) 05/24/2011 Encounters Date Type Department Care Team Description 08/09/2025 Telephone Walk-In Clinic - [place] [address] [place] [address] German Sherman PA 08/03/2025 Telephone Walk-In Clinic - [place] [address] [place] [address] German Sherman PA 05/30/2025 10:34 AM EDT - 05/30/2025 11:59 PM EDT Hospital [facility] [address] [place] [address] Acute left-sided thoracic back pain Discharge Disposition: Home or Self Care 05/30/2025 10:34 AM EDT - 05/30/2025 11:59 PM EDT Hospital Encounter Xray - [facility] [address] [place] [address] Acute left-sided thoracic back pain Discharge Disposition: Home or Self Care 05/30/2025 10:15 AM EDT Office Visit Walk-In Clinic - [address] [place] [address] German Sherman PA Acute left-sided thoracic back pain (Primary Dx) from Last 3 Months Immunizations Immunization Administration Dates Next Due Influenza Quadravalent, MDCK , 0.5ml, preservative free (Flucelvax) 6mo and older 07/08/2019 Medical History Medical History Date Comments Anxiety 07/08/2019 DX:Anxiety Substance abuse (CMS/[facility] V24 , [facility] V28) 08/12/2019 DX:Substance abuse ([facility]); CO MMENT: Opioids, Cocaine, Alcohol Depression 08/12/2019 DX:Depression Osteoarthritis 08/12/2019 DX:Osteoarthriti s; COMMENT: Lumbosacral Spine Severe obesity (BMI 35.0-39. 9) with comorbidity (CMS/HCC V24, CMS/HCC V28) 05/24/2011 DX:Severe obesi ty (BMI 35.0- 39.9) with comorbidity (HCC) Insomnia 08/12/2019 DX:Insomnia Borderline blood pressure 08/12/2019 DX:Bor derline blood pressure Low back pain 08/12/2019 DX:Low back pain Family History Medical History Relation Name Comments Melanoma Father from melan fabio Diabetes Maternal Grandmother [place] Alcohol abuse Mother Depression, Hy pertension Other: etoh issues Sister Other: Epilepsy Son Relation Name Status Comments Brother Alive Father lymph cancer Maternal Grandmother Mother Alive Sister Alive Son Social History Tobacco Use Types Packs/Day Years Used Date Smoking Tobacco: Former Smokeless Tobacco: Current Tobacco Cessation:Ready to Q uit: Not Asked; Counseling Given: Not Answered Alcohol Use Standard Drinks/Week Comments Yes 0 (1 standard drink = 0.6 oz pur e alcohol) Sex and Gender Information Value Date Recorded Sex Assigned at Not on file Legal Sex Male 12:36 PM EST Gender Identity Not on file Sexual Orientation Not on file Obstetrics History Last Filed Vital Signs Vital Sign Reading Time Taken Comments Blood Pressure 122/66 05/30/2025 10:19 AM EDT Pulse 82 05/30/2025 10:19 AM EDT Temperature 37 C (98.6 F) 05/30/2025 10:19 AM EDT Respiratory Rate - - Oxygen Saturation 98% 05/30/2025 10:19 AM EDT Inhaled Oxygen Concentration - - Weight - - Height - - Body Mass Index - - Plan of Treatment Health Maintenance Due Date Last Done Comments Colorectal Cancer Screening: Colonoscopy 1979 DTaP,Tdap,and Td Vaccines (1 - Tdap) 1998 Hepatitis A Vaccines (1 of 2 - Risk 2-dose series) 1998 Hepatitis B Vaccines (1 of 3 - 19+ 3-dose series) 1998 HPV Vaccines (1 - 3-dose SCD M series) 2006 Cholesterol Screening (Lipid Panel) 09/16/2022 HIV Screening 09/16/2022 Hepatitis C Screening 09/16/2022 Social Influencers of Health Screening 09/16/2022 Depression Screening 10/19/2024 COVID-19 Vaccine ( - 2024-2 6 season) 2025 08/28/2021, 02/04/2021, 01/07/2021 Influenza Vaccine (#1) 2025 07/08/2019 RSV Immunization Adult Patients (1 - 1-dose 75+ series) 2054 HIB Vaccines Aged Out No longer eligi ble based on patient's age to complete this topic IPV Vaccines Aged Out No longer eligi ble based on patient's age to complete this topic MMR Vaccines Aged Out No longer eligi ble based on patient's age to complete this topic Meningococcal ACWY Vaccine Aged Out N o longer eligible based on patient's age to complete this topic Meningococcal B Vaccine Aged Out No l onger eligible based on patient's age to complete this topic Pneumococcal Vaccine: Pediatrics (0 to 5 Years) and At-Risk Patients (6 to 49 Years) Aged Out No longer eligible b ased on patient's age to complete this topic RSV Immunization Patients Under 20 months Aged Out No longer eligible b ased on patient's age to complete this topic Varicella Vaccines Aged Out No longer eligible based on patient's age to complete this topic Procedures Procedure Name Priority Date/Time Associated Diagnosis Comments XR LUMBAR SPINE 4+ VIEWS STAT 05/30/2025 10:43 AM EDT Acute left-sided thoracic back pain XR THORACIC SPINE 2 VIEWS STAT 05/30/2025 10:43 AM EDT Acute left-sided thoracic back pain from Last 3 Months Results * XR Lumbar Spine 4+ Views (05/30/2025 10:43 AM EDT) Anatomical Region Laterality Modality Spine, L-spine Radiographic Kaye ging 05/30/2025 10:4 5 AM EDT Narrative 05/30/2025 10:47 AM EDT Lumbosacral spine, 4 views. History left-sided back pain after injury at work. Examination is somewhat limited due to patient's body habitus. Vertebral bodies are maintained in height. There is mild narrowing of the disc spaces at L3-4 and L4-5 levels and more prominent at L5-S1 level. There are discogenic anterior lateral osteophytes at multiple levels. There are multilevel degenerative changes in the facet joints more prominent at L5-S1 level. No visible fractures or dislocations. CONCLUSIONS: Multilevel bony and discs degenerative changes as detailed. No fractures or dislocations. Limited by body habitus examination. -------- FINAL REPORT -------- Dictated By: Moni Pickens Dictated Date: 05/30/2025 10:45 ET Assigned Physician: Moni Pickens Reviewed and Electronically Signed By: Moni Pickens Signed Date: 05/30/2025 10:47 ET Workstation ID: [id number] Transcribed By: Self Edit Transcribed Date: 05/30/2025 10:45 ET Procedure Note Moni Pickens MD - 05/30/2025 Lumbosacral spine, 4 views. History left-sided back pain after injury at work. Examination is somewhat limited due to patient's body habitus. Vertebral bodies are maintained in height. There is mild narrowing of thedisc spaces at L3-4 and L4-5 levels and more prominent at L5-S1 level.There are discogenic anterior lateral osteophytes at multiple levels.There are multilevel degenerative changes in the facet joints moreprominent at L5-S1 level. No visible fractures or dislocations. CONCLUSIONS: Multilevel bony and discs degenerative changes as detailed.No fractures or dislocations. Limited by body habitus examination. -------- FINAL REPORT -------- Dictated By: Moni Pickens Dictated Date: 05/30/2025 10:45 ET Assigned Physician: Moni Pickens Reviewed and Electronically Signed By: Moni Pickens Signed Date: 05/30/2025 10:47 ET Workstation ID: [id number] Transcribed By: Self Edit Transcribed Date: 05/30/2025 10:45 ET us German HOLLAND IMG XR PROCEDURES Final Re sult * XR Thoracic Spine 2 Views (05/30/2025 10:43 AM EDT) Anatomical Region Laterality Modality Spine, T-spine Radiographic Kaye ging 05/30/2025 10:4 4 AM EDT Narrative 05/30/2025 10:45 AM EDT Thoracic spine, 2 views. History left sided pain after injury at work. Vertebral bodies are maintained in height. There is slight narrowing of the disc spaces and discogenic osteophytes in the lower thoracic segment. No visible displaced fractures or dislocations. Pedicles are maintained. CONCLUSIONS: No visible displaced fractures or dislocations. Degenerative changes in the lower thoracic segment. -------- FINAL REPORT -------- Dictated By: Moni Pickens Dictated Date: 05/30/2025 10:44 ET Assigned Physician: Moni Pickens Reviewed and Electronically Signed By: Moni Pickens Signed Date: 05/30/2025 10:45 ET Workstation ID: [id number] Transcribed By: Self Edit Transcribed Date: 05/30/2025 10:44 ET Procedure Note Moni Pickens MD - 05/30/2025 Thoracic spine, 2 views. History left sided pain after injury at work. Vertebral bodies are maintained in height. There is slight narrowing ofthe disc spaces and discogenic osteophytes in the lower thoracic segment.No visible displaced fractures or dislocations. Pedicles are maintained. CONCLUSIONS: No visible displaced fractures or dislocations. Degenerativechanges in the lower thoracic segment. -------- FINAL REPORT -------- Dictated By: Moni Pickens Dictated Date: 05/30/2025 10:44 ET Assigned Physician: Moni Pickens Reviewed and Electronically Signed By: Moni Pickens Signed Date: 05/30/2025 10:45 ET Workstation ID: [id number] Transcribed By: Self Edit Transcribed Date: 05/30/2025 10:44 ET German HOLLAND IMG XR PROCEDURES Final Re sult from Last 3 Months Insurance [employer] Care Teams Diesel Truck Crane Operator Relationship Specialty Start Date End Date Leeann Atkins MD [address] [place] [id number] PCP - General Internal Medicine 02/04/17
== END 2025-08-15 14:30 | disposition home or self-care (01) ==
LOC: HO.HCC 14:03
PROVIDERS: PCP Internal Medicine; Visit Provider Clinical Nurse Specialist Psychiatric/Mental Health
DX: F11.99 Opioid use, unspecified with unspecified opioid-induced disorder (principal); Z51.81 Encounter for therapeutic drug level monitoring
CPT/HCPCS: 99213

== ENCOUNTER → 2025-08-15 14:03 | Outpatient (BNVA) | payer OTHER, SELFPAY | PROVIDERS: PCP Internal Medicine; Visit Provider Clinical Nurse Specialist Psychiatric/Mental Health | DX: F11.99 Opioid use, unspecified with unspecified opioid-induced disorder (principal) | CPT/HCPCS: 80307 ==

== ENCOUNTER 2025-09-05 16:04 | Outpatient (AMB) | payer OTHER, SELFPAY ==
[2025-09-05 16:12] VITALS: BP 146/86; PULSE 60; O2SAT 98
--- NOTE | 2025-09-05 16:12 | A.OFFVIS_ITS ---
Vital Signs 09/05/25 16:12 BP 146/86 H Pulse 60 Pulse Oximetry (%) 98 Intake Visit Reasons: MAT Allergies No Known Allergies Allergy (Verified 09/05/25 16:13) HPI Comments Details: A 44-year-old male presents for a follow-up visit r/t EARNESTINE in remission with buprenorphine-naloxone 8-2 mg BID. Denies use of opiates, alcohol, and other substance. Reports a 6 day inpatient detox for alcohol and has maintained sobriety. Engages in conversation re: focused on working and spending quality time with family. [facility] Medical History Opioid dependence Review of Systems Const All systems reviewed & are unremarkable except as noted in HPI and below Physical Exam Vital Signs: Last Vital Signs Pulse 60 09/05/25 16:12 BP 146/86 H 09/05/25 16:12 Pulse Ox 98 09/05/25 16:12 Const General: cooperative Assessment & Plan Assessment & Plan (1) Opioid use disorder in remission: Code(s): F11.91 - Opioid use, unspecified, in remission Category: Medical (2) Alcohol use disorder, severe, in early remission: Code(s): F10.21 - Alcohol dependence, in remission Category: Medical Plan The plan of care is to continue with buprenorphine-naloxone 8-2 mg BID. Start on acamprosate 333 mg 2 tablets TID to reduce cravings for alcohol, and thiamine 100 mg, folic acid 1 mg daily. Education provided re: acamprosate, thiamine, and folic acid including purpose, side effects, and general medication information. Declines referral for a peer soccer coach. Follow-up in month or sooner if needed. Medications: New folic acid Take one tablet daily 1 mg PO DAILY 90 tabs 0RF 90 days acamprosate Take 2 tablets three times per day 666 mg (2 x 333 mg) PO TID 180 tabs 1RF 30 days thiamine mononitrate (vit B1) Take 1 tablet daily 100 mg PO DAILY 90 tabs 0RF 90 days Changed From buprenorphine-naloxone 8-2 mg (Suboxone) Take 1 film sublingually twice per day 1 film sublingual BID 14 days 28 ea 0RF To buprenorphine-naloxone 8-2 mg (Suboxone) Take 1 film sublingually twice per day 1 film sublingual BID 30 days 30 ea 0RF Refilled buprenorphine-naloxone 8-2 mg (Suboxone) Take 1 film sublingually twice per day 1 film sublingual BID 60 ea 0RF 30 days Patient Instructions: - Continue with buprenorphine-naloxone as prescribed. - Start on acamprosate, thiamine, and folic acid as prescribed. - Follow-up in 1 month or sooner if needed. - Call with questions, concerns, or to report side effects/new onset of symptoms to [facility] [place]. - The patient verbalized understanding and agreed with plan of care. Coding Level of Care Code Est Pt Level 3 (61461) Diagnoses Opioid use disorder in remission F11.91 Alcohol use disorder, severe, in early remission F10.21
== END 2025-09-05 16:24 | disposition home or self-care (01) ==
LOC: HO.HCC 16:04
PROVIDERS: PCP Internal Medicine; Visit Provider Clinical Nurse Specialist Psychiatric/Mental Health
DX: F11.91 Opioid use, unspecified, in remission (principal); F10.21 Alcohol dependence, in remission
CPT/HCPCS: 99213